=== PATIENT | female | born 1990 | race Caucasian/White ===

== ENCOUNTER 2020-12-13 22:10 | Inpatient (IN) | payer SELFPAY ==
[2020-12-13 22:36] VITALS: BP 158/79; PULSE 105; RESP 18; TEMP 37.1; O2SAT 98
[2020-12-13 22:38] VITALS: BMI 26.5
[2020-12-14] MEDS: hyDROXYzine 25 mg Capsule 50 MG PO ×2 (00:12→20:47)
[2020-12-14] MEDS: trazodone 50 mg Tablet PO ×2 (00:12→01:23)
[2020-12-14 06:00] VITALS: RESP 17
--- NOTE | 2020-12-14 06:50 | PC.NURSE ---
pt refused/asked to do vitals later
[2020-12-14 14:00] VITALS: BP 110/62; PULSE 91; RESP 18; TEMP 36.7; O2SAT 97
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
[2020-12-14 20:29] VITALS: BP 110/62; PULSE 91; RESP 18; TEMP 36.7; O2SAT 97
[2020-12-14] MEDS: OLANZapine 5 mg ODT PO (20:47)
--- NOTE | 2020-12-14 20:56 | PC.NURSE ---
aNXIETY/YELLING zYPREXA ZYDIS 5 MG PO GIVEN FOR ANXIETY VISTARIL 50MG PO GIVEN FOR ANXIETY AND AGITATION PT ON THE PHONE REGARDING HER CHILDRENS COURT DATE, PT IS UPSET THAT SHE WILL MISS IT. PT YELLING AND CURSING THE RECIPIENT OF PHONE CALL. STAFF ATTEMPTED TO REDIRECT AND DEESCALATE PT. PT SLAMMED THE PHONE, ASKED FOR MEDICATION, AND WENT TO HER ROOM. SHE IS CONCERNED ABOUT HER MISSING THINGS AND UHAUL AND LOSING HER THINGS
[2020-12-14] MEDS: haloperidol 5 mg Tablet PO (22:04)
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
[2020-12-15 06:00] VITALS: BP 120/68; PULSE 71; RESP 18; TEMP 36.9; O2SAT 98
[2020-12-15 14:00] VITALS: BP 153/87; PULSE 77; RESP 17; TEMP 36.6; O2SAT 99
--- NOTE | 2020-12-15 16:06 | P.PN_ITS ---
Subjective NPU Subjective: Interval history: The patient says that she is feeling better today. She denies suicidal ideation. She denies hearing voices today. however she says she would like to go to get the U-Ha[employer] truck in [place], since it has her belongings in it, and drive back to [place] without telling her . She asks that we just print out some directions so she can find her way home. She also says that there was a divorce hearing today. She is not sure if they held it without her being there. She continues to refuse medications. She is not able or willing to tell me what medicines she has taken in the past. Mental Status Exam MSE Comments: I met with the patient in the dayroom, and she was dressed in hospital scrubs and her hair was more neatly combed. She was more able to cooperate and made fair eye contact. She had no psychomotor agitation or retardation Speech was pressured at times Alert, oriented to person, and situation. Attention and concentration were somewhat distractible Memory is confused. Mood is anxious. Affect is also anxious. Thought process was a little more organized. Thought content: She has auditory but not visual hallucinations. She has some delusions. No current suicidal ideation, and no homicidal ideation. Fund of knowledge is intact to exam. Language is intact to exam. Insight and judgment appear to be limited. Impulse control is limited as well. Vitals/I&O/Wt Last Vital Signs Temp 98.0 F 12/16/20 06:00 Pulse 75 12/16/20 06:00 Resp 20 H 12/16/20 06:00 BP 107/69 12/16/20 06:00 Pulse Ox 95 12/16/20 06:00 A&P Assessment and plan (1) Acute psychosis: Status: Acute (2) Bipolar II disorder with atypical features: Status: Acute (3) PTSD (post-traumatic stress disorder): Status: Acute (4) Marijuana abuse: Status: Acute (5) Methamphetamine abuse: Status: Acute (6) Alcohol abuse: Status: Acute Additional A&P Information This is a 30 year old female from [facility] who presented to the ED in [place] asking for psychiatric help. She hears voices, receives messages from unseen others, ask on those messages, has disorganized thinking, has emotional lability, and can use significant amounts of alcohol, marijuana, and methamphetamines. Though she took herself to the emergency room in [place], it is not clear that she wants our help at this time. However she would not be safe to discharge from the hospital given her current mental state. RECOMMENDATION AND PLAN: 1. Continue current medication. The patient does not want to take any additional medication at this time. We will encourage her to take an antipsychotic. 2. Continue every 15 minute checks for safety. 3. Encourage individual, group and milieu therapies. 4. Encourage sober living treatment after discharge at the highest level of care to which he is willing to commit. 5. Sort out an appropriate discharge plan that involves returning her to her home community. Involuntary Hold Information 96 Hour Hold: 96 Hour Involuntary Admission: Yes 96 Hour Hold Ending Date: 12/17/20 96 Hour Hold Ending Time: 22:10 Attestations U Medical Necessity Statement*: Psychiatric hospitalization is medically necessary to prevent access to lethal means, to reevaluate medication, and to coordinate a safe discharge. Likely length of stay is 3 to 5 days. Coding Level of Care Code Acute Petroleum Refinery Worker for Steve Barrientos Diagnoses Acute psychosis F23 Bipolar II disorder with atypical features F31.81 PTSD (post-traumatic stress disorder) F43.10 Marijuana abuse F12.10 Methamphetamine abuse F15.10 Alcohol abuse F10.10
[2020-12-15] MEDS: acetaminophen 325 mg Tablet 650 MG PO ×2 (16:20→23:34)
[2020-12-15] MEDS: nicotine 2 mg Gum BUCCAL ×2 (18:06→21:40)
[2020-12-15 20:19] VITALS: BP 136/81; PULSE 106; RESP 17; TEMP 36.9; O2SAT 98
[2020-12-15] MEDS: hyDROXYzine 25 mg Capsule 50 MG PO (21:40)
[2020-12-15] MEDS: trazodone 50 mg Tablet PO (21:41)
--- NOTE | 2020-12-16 03:32 | PC.NURSE ---
Patient given Trazpdone 50mg PO, Visteril 50 mg PO at patient request for sleep and anxiety.
--- NOTE | 2020-12-16 04:05 | PC.NURSE ---
Nursing note: Shift summary/assessment: Pt alert and oriented x4; moves all extremities and follows commands. Denies H/I and or S/I this shift. Up in halls for a little while at beginning of shift and then spent majority of shift in bed with eyes closed. Denies pain or needs. All vs and assessments as charted.
[2020-12-16 06:00] VITALS: BP 107/69; PULSE 75; RESP 20; TEMP 36.7; O2SAT 95
[2020-12-16 14:00] VITALS: BP 137/83; PULSE 90; RESP 16; TEMP 37.3; O2SAT 97
--- NOTE | 2020-12-16 16:22 | P.PN_ITS ---
Subjective NPU Subjective: Interval history: Patient presents today mostly focused on whether or not she will be discharged tomorrow. We had long discussion about concerns related to her lack of insight into her circumstances. She has been resistant to medication. She continues to express plan for discharge that nothing rational or taken consideration her situation and she continues to be resistant and allowing us to get collateral information. She continues to express paranoia. Mental Status Exam MSE Comments: This is an overweight white female with limited grooming and eye contact. No abnormal movements except for psychomotor retardation. Semicooperative with exam in no acute distress. Speech was decreased rate and volume mood described as okay affect. Thought process organized thought content: Patient denied suicidal ideation or ideation, there are no delusions reported but continued paranoia and believes existed. She denied auditory or visual hallucinations. Attention and concentration were improving and still unreliable but never formally tested. She is alert and oriented x3. Insight and judgment are impaired. Impulse control is impaired. Vitals/I&O/Wt Last Vital Signs Temp 97.8 F 12/16/20 20:32 Pulse 71 12/16/20 20:32 Resp 18 12/16/20 20:32 BP 127/85 12/16/20 20:32 Pulse Ox 99 12/16/20 20:32 A&P Additional A&P Information (1) Acute psychosis: (2) Bipolar II disorder with atypical features: (3) PTSD (post-traumatic stress disorder): (4) Marijuana abuse: (5) Methamphetamine abuse: (6) Alcohol abuse: This is a 30 year old female from [facility] who presented to the ED in [place] asking for psychiatric help. She hears voices, receives messages from unseen others, ask on those messages, has disorganized thinking, has emotional lability, and can use significant amounts of alcohol, marijuana, and methamphetamines. Though she took herself to the emergency room in [place], it is not clear that she wants our help at this time. However she would not be safe to discharge from the hospital given her current mental state. RECOMMENDATION AND PLAN: 1. Continue current medication. 2. Continue every 15 minute checks for safety. 3. Encourage individual, group and milieu therapies. 4. Encourage sober living treatment after discharge at the highest level of care to which he is willing to commit. 5. Sort out an appropriate discharge plan that involves returning her to her home community. Involuntary Hold Information 96 Hour Hold: 96 Hour Involuntary Admission: Yes 96 Hour Hold Ending Date: 12/17/20 96 Hour Hold Ending Time: 22:10 Attestations NPU Medical Necessity Statement*: Psychiatric hospitalization is medically necessary to prevent access to lethal means, to reevaluate medication, and to coordinate a safe discharge. Likely length of stay is 3 to 5 days. Coding Level of Care Code Acute Nuclear Instructor for Steve Barrientos
[2020-12-16 20:32] VITALS: BP 127/85; PULSE 71; RESP 18; TEMP 36.6; O2SAT 99
[2020-12-16] MEDS: OLANZapine 5 mg ODT PO (20:52)
[2020-12-16] MEDS: hyDROXYzine 25 mg Capsule 50 MG PO (20:52)
[2020-12-16] MEDS: trazodone 50 mg Tablet PO (20:52)
[2020-12-16] MEDS: nicotine 2 mg Gum BUCCAL (21:36)
--- NOTE | 2020-12-17 00:11 | PC.NURSE ---
PRN MEDIATIONS: PATIENT WAS GIVEN VISTERIL 50MG PO, NICORETTE GUM 2GM PO, ZYPREXA 5MG PO AND DESYREL 50MG PO. UPON REASSESSMENT MEDICATION WAS EFFECTIVE.
[2020-12-17 06:00] VITALS: BP 127/85; PULSE 71; RESP 18; TEMP 36.6; O2SAT 99
--- NOTE | 2020-12-17 11:33 | P.PN_ITS ---
Subjective NPU Subjective: Interval history: Patient presents today finally at 1 point in the conversation having a moment of honesty after it was acknowledged that she would not be leaving. She acknowledged that she had cracked, and was not thinking clearly when she drove down here. She was being very reluctant with information and guarded as to how that information might be used against her. And was continuing to be reluctant to allow anyone in her life to assist us in making sure that she is back to her normal self. Mental Status Exam MSE Comments: This is an overweight white female with limited grooming and eye contact. No abnormal movements except for psychomotor retardation. More cooperative with exam in no acute distress. Speech was decreased rate and volume mood described as better, affect congruent and a little less odd. Thought process organized thought content: Patient denied suicidal ideation or ideation, there are no delusions reported but continued paranoia and believes existed. She denied auditory or visual hallucinations. Attention and concentration were improving and still unreliable but never formally tested. She is alert and oriented x3. Insight and judgment are impaired, but improving. Impulse control is impaired, but improving. Vitals/I&O/Wt Last Vital Signs Temp 97.8 F 12/17/20 06:00 Pulse 71 12/17/20 06:00 Resp 18 12/17/20 06:00 BP 127/85 12/17/20 06:00 Pulse Ox 99 12/17/20 06:00 A&P Additional A&P Information (1) Acute psychosis: (2) Bipolar II disorder with atypical features: (3) PTSD (post-traumatic stress disorder): (4) Marijuana abuse: (5) Methamphetamine abuse: (6) Alcohol abuse: This is a 30 year old female from [facility] who presented to the ED in [place] asking for psychiatric help. She hears voices, receives messages from unseen others, ask on those messages, has disorganized thinking, has emotional lability, and can use significant amounts of alcohol, marijuana, and methamphetamines. Though she took herself to the emergency room in [place], it is not clear that she wants our help at this time. However she would not be safe to discharge from the hospital given her current mental state. RECOMMENDATION AND PLAN: 1. Continue current medication. We will medications and try to get to the bottom of the source of her psychosis. 2. Continue every 15 minute checks for safety. 3. Encourage individual, group and milieu therapies. 4. Encourage sober living treatment after discharge at the highest level of care to which he is willing to commit. 5. Sort out an appropriate discharge plan that involves returning her to her home community. 6. 21-day hold paperwork filed. Involuntary Hold Information 96 Hour Hold: 96 Hour Involuntary Admission: Yes 96 Hour Hold Ending Date: 12/17/20 96 Hour Hold Ending Time: 22:10 Attestations NPU Medical Necessity Statement*: Psychiatric hospitalization is medically necessary to prevent access to lethal means, to reevaluate medication, and to coordinate a safe discharge. Likely length of stay is 3 to 5 days. Coding Level of Care Code Acute Organic Lab Worker for Steve Barrientos
[2020-12-17 14:00] VITALS: BP 108/80; PULSE 88; RESP 17; TEMP 36.7; O2SAT 98
[2020-12-17] MEDS: LORazepam 2 mg/mL INJ 1 mL IM (20:24)
[2020-12-17 21:01] VITALS: BP 125/80; PULSE 82; RESP 18; TEMP 36.5; O2SAT 100
--- NOTE | 2020-12-17 23:02 | PC.NURSE ---
]patient refused benadryl 50mg, medication wasted. Patient did receive IM ativan 2mg for severe agitation. Medication effective.
[2020-12-18 06:00] VITALS: BP 125/80; PULSE 82; RESP 18; TEMP 36.5; O2SAT 100
[2020-12-18 06:20] VITALS: BP 124/87; PULSE 88; RESP 20; TEMP 36.4; O2SAT 98
[2020-12-18] MEDS: acetaminophen 325 mg Tablet 650 MG PO ×2 (09:57→17:30)
[2020-12-18] MEDS: hyDROXYzine 25 mg Capsule 50 MG PO ×3 (09:57→20:45)
--- NOTE | 2020-12-18 09:58 | PC.NURSE ---
Administered Tylenol 350mg for jaw pain and vistaril 50mg for increasing anxiety. nurse will continue to monitor.
[2020-12-18 14:00] VITALS: BP 124/87; PULSE 88; RESP 20; TEMP 36.4; O2SAT 98
[2020-12-18] MEDS: ibuprofen 800 mg tablet PO (17:50)
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
[2020-12-18] MEDS: blistex lip oint 7 gm Tube 1 APPLIC TOPICAL (20:45)
[2020-12-18] MEDS: trazodone 50 mg Tablet PO (20:45)
[2020-12-18 20:50] VITALS: BP 123/85; PULSE 82; RESP 17; TEMP 36.9; O2SAT 98
[2020-12-18] MEDS: OLANZapine 5 mg ODT PO (22:29)
[2020-12-18] MEDS: bisacodyl 5 mg Tablet 10 MG PO (22:46)
--- NOTE | 2020-12-19 02:53 | PC.NURSE ---
PRN Tylenol, Vistaril, Zyprexa, trazadone, and dulcolax given for anxiety, insomnia, and constipation. Patient tolerated medication well. Will continue to monitor.
[2020-12-19 06:00] VITALS: BP 123/85; PULSE 82; RESP 17; TEMP 36.9; O2SAT 98
--- NOTE | 2020-12-19 08:06 | PM.NPN ---
Subjective NPU Subjective: Interval history: Patient presents today reporting that she is doing little better now that she understands the 21-day hold process. She understands that it was initiated with concerns that she was not ready to go at that point but that she can be discharged whenever it is deemed appropriate. We continue to agree that she would work with the treatment team in the morning and attempt to navigate a lot of hospital she has in her request to get back to [place]. She reports eating okay and sleeping fine. Mental Status Exam MSE Comments: This is an overweight white female with limited grooming and eye contact. No abnormal movements except for psychomotor retardation. More cooperative with exam in no acute distress. Speech was more normal rate and volume. Mood described as better, affect congruent. Thought process organized thought content: Patient denied suicidal ideation or ideation, there are no delusions reported and she is acknowledging that her delusional thinking is abating. She denied auditory or visual hallucinations. Attention and concentration were improving and memory is more reliable but none were formally tested. She is alert and oriented x3. Insight and judgment are limited, but improving. Impulse control is limited, but improving. Vitals/I&O/Wt Last Vital Signs Temp 98.4 F 12/19/20 06:00 Pulse 82 12/19/20 06:00 Resp 17 12/19/20 06:00 BP 123/85 12/19/20 06:00 Pulse Ox 98 12/19/20 06:00 Weight last 48 hrs Weight 68 kg Involuntary Hold Information 96 Hour Hold: 96 Hour Involuntary Admission: Yes 96 Hour Hold Ending Date: 12/17/20 96 Hour Hold Ending Time: 22:10 Attestations NPU Medical Necessity Statement*: Psychiatric hospitalization is medically necessary to prevent access to lethal means, to reevaluate medication, and to coordinate a safe discharge. Likely length of stay is 2-4 days. Coding Level of Care Code Acute Ramp Attendant for Steve Barrientos
[2020-12-19 14:00] VITALS: BP 119/75; PULSE 74; RESP 16; TEMP 36.7; O2SAT 98
[2020-12-19] MEDS: ibuprofen 800 mg tablet PO ×2 (16:01→21:59)
[2020-12-19 20:17] VITALS: BP 148/58; PULSE 94; RESP 17; TEMP 36.8; O2SAT 93
[2020-12-19] MEDS: trazodone 50 mg Tablet PO (21:59)
[2020-12-20 06:00] VITALS: BP 99/64; PULSE 70; RESP 18; TEMP 36.8; O2SAT 95
[2020-12-20 13:55] VITALS: BP 95/53; PULSE 91; RESP 17; TEMP 36.7; O2SAT 97
--- NOTE | 2020-12-20 14:08 | NPU.GN ---
[facility] Unit Group Topic:Depression [place] General Mood of Group: Patient refused group today, too tired.
[2020-12-20] MEDS: acetaminophen 325 mg Tablet 650 MG PO (15:29)
[2020-12-20] MEDS: OLANZapine 5 mg ODT PO (16:02)
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
--- NOTE | 2020-12-20 16:02 | PC.NURSE ---
Addendum entered by Annette Almaguer LPN 12/20/20 18:39: LATE ENTRY, PRN MED EFFECTIVE NO FURTHER C/O AGITATION Original Note: PRN ZYPREXA ZYDIS 5 MG GIVEN PO PER PT C/O AGITATION. PT YELLING AND CURSING FROM HER ROOM, UPSET SHE ISN'T GETTING FUCKING DISCHARGED TODAY
[2020-12-20] MEDS: ibuprofen 800 mg tablet PO (20:23)
[2020-12-20 22:00] VITALS: BP 106/72; PULSE 76; RESP 16; TEMP 36.6; O2SAT 96
[2020-12-20] MEDS: trazodone 50 mg Tablet PO (22:11)
--- NOTE | 2020-12-20 22:15 | PC.NURSE ---
pt requesting sleep aide, trazodone 50mg po given.
--- NOTE | 2020-12-20 23:30 | PC.NURSE ---
pt resting quietly with both eyes closed
[2020-12-21 06:00] VITALS: BP 123/79; PULSE 70; RESP 20; TEMP 36.8; O2SAT 96
[2020-12-21] MEDS: ibuprofen 800 mg tablet PO ×3 (06:10→21:33)
--- NOTE | 2020-12-21 10:40 | NPU.GN ---
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
--- NOTE | 2020-12-21 10:41 | NPU.GN ---
[facility] Group Topic: Sail Boat/ Machanisms General Mood of Group: Maryanne did not attend group today.
[2020-12-21 14:00] VITALS: BP 117/80; PULSE 86; RESP 17; TEMP 37.1; O2SAT 98
[2020-12-21] MEDS: acetaminophen 325 mg Tablet 650 MG PO (15:43)
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
--- NOTE | 2020-12-21 19:40 | PC.NURSE ---
tooth Pain/hospitalist consult - pt complains of an abscessed tooth, jaw is visibly swollen, motrin 800mg po is not effective alone to control pain. Consult obtained, pt to receive antibiotics per Dr. Roque
[2020-12-21] MEDS: trazodone 50 mg Tablet PO (21:33)
--- NOTE | 2020-12-21 21:35 | PC.NURSE ---
pt requested pain med for jaw pain and sleep med. trazodone 50mg po for sleep and motrin 800mg po for pain given.
[2020-12-21 22:00] VITALS: BP 117/79; PULSE 74; RESP 17; TEMP 36.3; O2SAT 99
--- NOTE | 2020-12-21 23:17 | P.CONIM_ITS ---
Providers/Reason For Consult Consulting Physician/Specialty*: Medicine Reason for Consult*: Dental pain Attending Physician: Rufino Do MD History of Present Illness History of Present Illness Maryanne Manuel is a 30 year old female Admitted to psychiatric unit started to complain of right-sided facial and dental pain. Does have a history of poor dentition. Intermittently had low-grade temps. Has not recently seen a dentist. Does complain of pain with mastication on right side. Pain did improve with ibuprofen. Also noted some swelling on right side of face. Review of Systems General: Reports: 10 or more systems reviewed and unremarkable except in HPI and below Meds/Allergies Home Medications and Allergies Home Medications Medication Instructions Recorded Confirmed Last Taken Type diphenhydramine HCl [Benadryl] 50 mg PO BEDTIME PRN 12/14/20 12/14/20 Unknown History ibuprofen-diphenhydramine cit 1 tab PO BEDTIME PRN 12/14/20 12/14/20 12/12/20 History [Advil PM] Allergies Allergy/AdvReac Type Severity Reaction Status Date / Time No Known Allergies Allergy Verified 12/14/20 00:11 Current Medications Current Medications Generic Name Dose Route Start Last Admin Trade Name Freq PRN Reason Stop Dose Admin Acetaminophen 650 mg 12/13/20 22:35 12/21/20 15:43 Acetaminophen 325 Mg Tablet PO 650 mg Q4H PRN Administration MILD PAIN Bisacodyl 10 mg 12/18/20 02:33 12/18/20 22:46 Bisacodyl 5 Mg Tablet PO 10 mg DAILY PRN Administration CONSTIPATION Camphor/Menthol/Phenol 1 applic 12/13/20 22:35 12/18/20 20:45 Blistex Lip Oint 7 Gm Tube TOPICAL 1 applic Q1H PRN Administration DRYNESS Haloperidol 5 mg 12/13/20 22:35 12/14/20 22:04 Haloperidol 5 Mg Tablet PO 5 mg Q4H PRN Administration AGITATION Hydroxyzine Pamoate 50 mg 12/13/20 22:35 12/18/20 20:45 Hydroxyzine 25 Mg Capsule PO 50 mg Q6H PRN Administration ANXIETY Ibuprofen 800 mg 12/18/20 17:46 12/21/20 21:33 Ibuprofen 800 Mg Tablet PO 800 mg TID PRN Administration MODERATE PAIN Nicotine Polacrilex 2 mg 12/13/20 22:35 12/16/20 21:36 Nicotine 2 Mg Gum BUCCAL 2 mg Q2H PRN Administration NICOTINE WITHDRAWAL Olanzapine 5 mg 12/13/20 22:35 12/20/20 16:02 Olanzapine 5 Mg Odt PO 5 mg Q4H PRN Administration Agitation/Psychosis Trazodone HCl 50 mg 12/14/20 22:01 12/21/20 21:33 Trazodone 50 Mg Tablet PO 50 mg BEDTIME PRN Administration SLEEP Vitals/I&O/Wt Last Vital Signs Temp 97.4 F L 12/21/20 22:00 Pulse 74 12/21/20 22:00 Resp 17 12/21/20 22:00 BP 117/79 12/21/20 22:00 Pulse Ox 99 12/21/20 22:00 Physical Exam Narrative: EXAM NARRATIVE: General?alert awake and oriented HEENT?no visible oral abscess, mild right-sided edema, nontender Chest?nonlabored respiration Abdomen?nondistended Extremity?no edema A&P Assessment and plan (1) Pain, dental: Emperically started on amoxicillin 500mg PO TID Tyelenol/Ibprofen Prn for pain and fever Follow up with dentist on outpatient Medicine will follow while admitted Status: Acute Consult Attestations Medical Necessity Statement: Per psych Time Spent in Patient Care: 16 - 35 minutes Coding Level of Care Code Acute Glass Cutting Machine Feeder for Steve Barrientos Diagnoses Pain, dental K08.89
--- NOTE | 2020-12-22 05:38 | PC.NURSE ---
pt resting quietly with both eyes closed
[2020-12-22 06:00] VITALS: BP 125/87; PULSE 85; RESP 22; TEMP 36.9; O2SAT 97
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
[2020-12-22 10:10] VITALS: BP 125/87; PULSE 85; RESP 22; TEMP 36.9; O2SAT 97
[2020-12-22] MEDS: amoxicillin 500 mg Capsule PO (10:22)
== END 2020-12-22 10:21 | disposition home or self-care (01) | DRG 885 ==
PROVIDERS: Admitting Provider Psychiatry & Neurology Child & Adolescent Psychiatry; Visit Provider Psychiatry & Neurology Child & Adolescent Psychiatry
DX: F23 Brief psychotic disorder (principal); F31.81 Bipolar II disorder; F43.11 Post-traumatic stress disorder, acute; F10.10 Alcohol abuse, uncomplicated; F15.10 Other stimulant abuse, uncomplicated; F12.10 Cannabis abuse, uncomplicated; K08.89 Other specified disorders of teeth and supporting structures
CPT/HCPCS: 96372; 97150; 97165; J1200; J2060